=== PATIENT | male | born 1995 | race Two or more races ===

== ENCOUNTER 2021-03-27 17:22 | Emergency (ER) | payer OTHER ==
[~2021-03-27] VITALS: Ht 167.6 cm; Wt 106.6 kg
[2021-03-27 19:51] VITALS: BP 94/58
== END 2021-03-27 22:22 | disposition home or self-care (01) ==
LOC: ER 17:22
DX: S50.861A Insect bite (nonvenomous) of right forearm, initial encounter (principal); S30.860A Insect bite (nonvenomous) of lower back and pelvis, initial encounter; Z90.89 Acquired absence of other organs; W57.XXXA Bitten or stung by nonvenomous insect and other nonvenomous arthropods, initial encounter; Y93.89 Activity, other specified; Y92.89 Other specified places as the place of occurrence of the external cause; Y99.8 Other external cause status